=== PATIENT | male | born 2000 | race African-American/Black ===

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

== ENCOUNTER 2025-02-22 18:22 | Inpatient (IN) | payer OTHER ==
[2025-02-22 18:46] LABS: MCHC 32.9 g/dl (32.3-36.5); MEAN CELL VOLUME 86.7 fl (79.0-92.2); MEAN PLT VOLUME 10.6 fl (9.4-12.4); RDW 12.5 % (11.9-15.3)
[2025-02-22 19:03] LABS: ALK PHOS 163.0 U/L (45-117); CO2 11.0 mmol/L (21-32); CREATININE 1.7 mg/dl (0.6-1.3); SGOT/AST 17.0 U/L (15-37); SGPT/ALT 14.0 U/L (7-52); TOT PROT 7.2 g/dl (6.4-8.2)
[2025-02-22 19:07] LABS: GLUCOSE,RANDOM 923.0 mg/dl (74-106)
[2025-02-22] MEDS: SODIUM CHLORIDE 0.9% 1000 ML INFUS.BAG IV ONE (19:20)
[2025-02-22] MEDS ORDERED: INSULIN REGULAR HUMAN 100 UNITS/ML *VIAL ONE (19:30)
[2025-02-22] MEDS: INSULIN REGULAR 100 UNITS in SODIUM CHLORIDE 99 ML IVPB SCH ×3 (19:45→23:39)
[2025-02-22] MEDS: INSULIN REGULAR HUMAN 100 UNITS/ML *VIAL IVPUSH ONE (20:09)
[2025-02-22 21:13] LABS: BG HCT 44.0 % (35.4-49); VENOUS BASE EXCESS -20.5 mmol/L (-2-2); VENOUS O2 SATURATION 51.2 % (70-80); VENOUS PCO2 39.0 mmHg (38-52); VENOUS PH 7.021 (7.310-7.410)
[2025-02-22 21:34] LABS: HCV DIAGNOSTIC IN-HOUSE W/RFLX NON-REACTIVE (NONREACTIVE)
[2025-02-22 21:35] LABS: HIV INTERPRETATION NEGATIVE (NEGATIVE)
[2025-02-22] MEDS ORDERED: HEPARIN NA (PORCINE) 5,000 UNITS/ML 1ML VIAL ONE (21:51)
[2025-02-22] MEDS: HEPARIN NA (PORCINE) 5,000 UNITS/ML 1ML VIAL SQ SCH (21:58)
[2025-02-22] MEDS ORDERED: ONDANSETRON 4 MG/2 ML VIAL IVPUSH PRN (23:30)
[2025-02-22] MEDS: SODIUM CHLORIDE 1,000 ML IV STA ×2 (23:38→23:40)
[2025-02-22] MEDS: CHLORHEXIDINE GLUCONATE 4% CLEANSER FOR DECOLONIZATION TP SCH ×2 (23:39→23:40)
[2025-02-22] MEDS: SODIUM CHLORIDE 1,000 ML IV SCH (23:39)
[2025-02-22] MEDS: MUPIROCIN 2% TOPICAL OINTMENT FOR DECOLONIZATION NS SCH (23:40)
[2025-02-23 00:31] LABS: ABSOLUTE IMMATURE GRANULOCYTES 0.09 x10^3/uL (0.0-0.031); BASOPHILS # 0.04 x10^3/uL (0.01-0.08); EOSINOPHIL % 0.0 % (0.8-7.0); EOSINOPHILS # 0.00 x10^3/uL (0.04-0.54); MCHC 31.8 g/dl (32.3-36.5); MEAN CELL VOLUME 90.1 fl (79.0-92.2); MEAN PLT VOLUME 10.4 fl (9.4-12.4); MONOCYTE # 1.28 x10^3/uL (0.30-0.82); MONOCYTE % 7.1 % (5.3-12.2); RDW 12.5 % (11.9-15.3)
[2025-02-23 00:38] VITALS: BMI 23.8
[2025-02-23 00:57] LABS: GLUCOSE,RANDOM 373.0 mg/dL (74-106); TOT PROT 6.6 g/dl (6.4-8.2)
[2025-02-23 00:58] LABS: CO2 11.0 mmol/L (21-32); GLUCOSE,RANDOM 376.0 mg/dL (74-106); TOT PROT 6.6 g/dl (6.4-8.2)
[2025-02-23 01:00] LABS: ALK PHOS 157.0 U/L (40-150); CO2 11.0 mmol/L (21-32)
[2025-02-23 01:01] LABS: ALK PHOS 157.0 U/L (40-150)
[2025-02-23 01:02] LABS: SGOT/AST 25.0 U/L (5-34); SGPT/ALT 16.0 U/L (0-55)
[2025-02-23 01:03] LABS: CREATININE 1.18 mg/dL (0.55-1.3)
[2025-02-23 01:04] LABS: CREATININE 1.18 mg/dL (0.55-1.3); SGOT/AST 26.0 U/L (5-34); SGPT/ALT 14.0 U/L (0-55)
[2025-02-23] MEDS: DEXTROSE 5%-NORMAL SALINE 1,000 ML IV SCH ×2 (01:24→13:36)
[2025-02-23 06:50] LABS: ABSOLUTE IMMATURE GRANULOCYTES 0.06 x10^3/uL (0.0-0.031); BASOPHILS # 0.02 x10^3/uL (0.01-0.08); EOSINOPHIL % 0.1 % (0.8-7.0); EOSINOPHILS # 0.01 x10^3/uL (0.04-0.54); MCHC 33.8 g/dl (32.3-36.5); MEAN CELL VOLUME 83.2 fl (79.0-92.2); MEAN PLT VOLUME 9.8 fl (9.4-12.4); MONOCYTE # 2.04 x10^3/uL (0.30-0.82); MONOCYTE % 14.3 % (5.3-12.2); RDW 12.5 % (11.9-15.3)
[2025-02-23 06:50] LABS: BG HCT 43.0 % (35.4-49); VENOUS BASE EXCESS -4.8 mmol/L (-2-2); VENOUS O2 SATURATION 50.2 % (70-80); VENOUS PCO2 47.0 mmHg (38-52); VENOUS PH 7.288 (7.310-7.410)
[2025-02-23] MEDS: DEXTROSE 50%-WATER 25 GM/50 ML DISP.SYRIN IVPUSH PRN (06:50)
[2025-02-23 07:19] LABS: GLUCOSE,RANDOM 105.0 mg/dL (74-106); TOT PROT 6.3 g/dl (6.4-8.2)
[2025-02-23 07:20] LABS: CO2 22.0 mmol/L (21-32)
[2025-02-23 07:22] LABS: ALK PHOS 123.0 U/L (40-150)
[2025-02-23 07:24] LABS: SGOT/AST 22.0 U/L (5-34); SGPT/ALT 7.0 U/L (0-55)
[2025-02-23 07:25] LABS: CREATININE 0.92 mg/dL (0.55-1.3)
[2025-02-23] MEDS ORDERED: MUPIROCIN 2% TOPICAL OINTMENT FOR DECOLONIZATION NS SCH (10:00)
[2025-02-23] MEDS: MUPIROCIN 2% TOPICAL OINTMENT FOR DECOLONIZATION NS SCH (10:04)
[2025-02-23] MEDS ORDERED: INSULIN ASPART SLIDING SCALE (NOVOLOG) 1 VIAL SQ ONE ×2 (12:31→13:41)
[2025-02-23] MEDS: INSULIN ASPART SLIDING SCALE (NOVOLOG) 1 VIAL SQ SCH (12:33)
[2025-02-23] MEDS: HEPARIN NA (PORCINE) 5,000 UNITS/ML 1ML VIAL SQ SCH (13:42)
[2025-02-23] MEDS: INSULIN (NOVOLOG) ASPART 100 UNITS/ML 10ML VIAL SQ SCH (17:20)
[2025-02-23] MEDS ORDERED: SODIUM CHLORIDE 1,000 ML IV SCH (18:30)
[2025-02-23] MEDS: SODIUM CHLORIDE 1,000 ML IV SCH (19:15)
[2025-02-23] MEDS: INSULIN GLARGINE (LANTUS) 100 UNITS/ML UNITS SQ SCH (21:45)
[2025-02-23] MEDS ORDERED: INSULIN GLARGINE (LANTUS) 100 UNITS/ML UNITS SQ SCH ×2 (22:00)
[2025-02-23] MEDS ORDERED: CHLORHEXIDINE GLUCONATE 4% CLEANSER FOR DECOLONIZATION TP SCH (22:00)
[2025-02-24 03:02] LABS: GLUCOSE,RANDOM 463 mg/dL (74-106)
[2025-02-24 03:03] LABS: CO2 16 mmol/L (21-32)
[2025-02-24 03:07] LABS: CREATININE 0.93 mg/dL (0.55-1.3)
[2025-02-24] MEDS ORDERED: INSULIN GLARGINE (LANTUS) 100 UNITS/ML UNITS SQ ONE (03:16)
[2025-02-24] MEDS: INSULIN (NOVOLOG) ASPART 100 UNITS/ML 10ML VIAL SQ ONE ×3 (03:46→03:50)
[2025-02-24 07:52] LABS: MCHC 34.8 g/dl (32.3-36.5); MEAN CELL VOLUME 81.7 fl (79.0-92.2); MEAN PLT VOLUME 9.5 fl (9.4-12.4); RDW 12.5 % (11.9-15.3)
[2025-02-24] MEDS: SODIUM CHLORIDE 1,000 ML IV SCH ×2 (08:14→11:48)
[2025-02-24 08:19] LABS: GLUCOSE,RANDOM 150.0 mg/dL (74-106); TOT PROT 5.5 g/dl (6.4-8.2)
[2025-02-24 08:21] LABS: CO2 22.0 mmol/L (21-32)
[2025-02-24 08:22] LABS: ALK PHOS 109.0 U/L (40-150)
[2025-02-24 08:25] LABS: CREATININE 0.77 mg/dL (0.55-1.3); SGOT/AST 17.0 U/L (5-34); SGPT/ALT 8.0 U/L (0-55)
[2025-02-24] MEDS: POTASSIUM CHLORIDE ORAL LIQUID 20 MEQ/15 ML PO ONE (08:51)
[2025-02-24] MEDS: POTASSIUM PHOSPHATE 15 MM in SODIUM CHLORIDE 250 ML IVPB ONE (11:33)
[2025-02-24] MEDS: OXYMETAZOLINE 0.05% NASAL SOLUTION 15 ML BOTTLE NS ONE (16:47)
[2025-02-24 21:00] VITALS: RESP 18
[2025-02-25 07:39] LABS: MCHC 34.0 g/dl (32.3-36.5); MEAN CELL VOLUME 82.8 fl (79.0-92.2); MEAN PLT VOLUME 9.7 fl (9.4-12.4); RDW 12.5 % (11.9-15.3)
[2025-02-25 09:34] LABS: GLUCOSE,RANDOM 82.0 mg/dL (74-106)
[2025-02-25 09:35] LABS: CO2 24.0 mmol/L (21-32)
[2025-02-25 09:39] LABS: CREATININE 0.66 mg/dL (0.55-1.3)
[2025-02-25 10:48] VITALS: BP 119/77; PULSE 98; TEMP 98.4
[2025-02-25] MEDS ORDERED: INSULIN GLARGINE (LANTUS) 100 UNITS/ML UNITS SQ SCH (22:00)
== END 2025-02-25 11:35 | disposition home or self-care (01) | DRG 420 ==
LOC: FER 18:22 → JICU 23:13 → J5S 02-23 13:07
PROVIDERS: ADMIT Internal Medicine Pulmonary Disease; ATTEND Internal Medicine
DX: E10.10 Type 1 diabetes mellitus with ketoacidosis without coma (principal); N17.9 Acute kidney failure, unspecified; E87.0 Hyperosmolality and hypernatremia; D72.829 Elevated white blood cell count, unspecified
CPT/HCPCS: 36415; 71045-TC-FY; 80048; 80053; 81003; 81015; 82010; 82803; 82962; 83036; 83735; 84100; 84484; 85025; 85027; 86803; 87040; 87077; 87086; 87389; 87637-QW; 93005; 99285-25